=== PATIENT | female | born 1950 | race Caucasian/White ===

== ENCOUNTER → 2017-09-14 | Outpatient (CLI) | payer MEDICARE ==
[~2017-09-14] MED LIST: ADIP37.55 PO; CALC250T PO; CHOL5000 PO; DULA0.5I SQ; FURO20TA PO; LISI-515 PO; METF500T PO; PANT40TA3 PO; POTA99TA4 PO; ROPI1TAB PO; VITA500T83 PO
[2017-09-14 14:14] LABS: AUTOMATED NEUTROPHIL # 3.9 TH/MM3 (1.8-7.7); BASOPHIL # 0.1 TH/MM3 (0-0.2); BASOPHIL % 1.1 % (0.0-2.0); EOSINOPHIL # 0.2 TH/MM3 (0-0.4); EOSINOPHIL % 2.6 % (0.0-4.0); HEMATOCRIT 39.9 % (35.0-46.0); MEAN CELL VOLUME 88.2 FL (80.0-100.0); MEAN CORPUSCULAR HEMOGLOBIN 28.7 PG (27.0-34.0); MEAN CORPUSCULAR HGB CONC 32.6 % (32.0-36.0); MEAN PLATELET VOLUME 9.6 FL (7.0-11.0); MONO % 9.1 % (0.0-8.0); MONOCYTE # 0.6 TH/MM3 (0-0.9); NEUT % 58.2 % (16.0-70.0); PLATELET COUNT 274 TH/MM3 (150-450); RED BLOOD COUNT 4.52 MIL/MM3 (4.00-5.30); RED CELL DISTRIBUTION WIDTH 13.2 % (11.6-17.2); WHITE BLOOD COUNT 6.7 TH/MM3 (4.0-11.0)
[2017-09-14 14:20] LABS: BILIRUBIN, URINE NEG (NEG); BLOOD, URINE NEG (NEG); GLUCOSE,URINE NEG (NEG); HYALINE CAST, URINE 1 /lpf (RARE); KETONE, URINE NEG (NEG); NITRITE,URINE NEG (NEG); SQUAMOUS EPITHELIAL CELL URINE <1 /hpf (0-5); URINE COLOR LIGHT-YELLOW (YELLW/STRAW); URINE LEUKOCYTE ESTERASE NEG (NEG)
[2017-09-14 14:26] LABS: BICARBONATE 25.5 MEQ/L (21.0-32.0)
--- NOTE | 2017-09-15 14:35 | EKG ---
Date Performed: 09/14/2017 Time Performed: 13:21:03 PTAGE: 66 years EKG: Sinus rhythm NORMAL ECG NO PREVIOUS TRACING DOCTOR: Brock Wyatt Interpretating Date/Time 09/15/2017 14:30:21
--- NOTE | 2017-09-15 17:26 | MH ---
cc: ROSSY CAPUTO MD DATE OF ADMISSION: 09/14/2017 ADMITTING DIAGNOSIS: Cystocele, rectocele. HISTORY OF PRESENT ILLNESS The patient is a 66-year-old white female para 2-0-0-[address] Pradhan for evaluation of vaginal prolapse in July 2017. Her most recent Pap smear was normal from June 2017. Her pelvic ultrasound from 08/11/2017 shows small fibroids. She is now admitted for surgical treatment. PAST MEDICAL HISTORY/PREVIOUS SURGERY: She had appendectomy in 1970 2004 she had a Johan-en-Y gastric bypass and successfully lost 175 pounds. MEDICATIONS 1. Lisinopril 2. Lasix 3. <<1:13>> . 4. Metformin. 5. Protonix. ALLERGIES Macrodantoin OBSTETRICAL HISTORY: Two vaginal births. SOCIAL HISTORY She is retired [employer], she is for 47 years. Alcohol occasional tobacco she quit 7 years ago or drugs are none. FAMILY HISTORY: Her family history is noncontributory. PHYSICAL EXAMINATION: IN GENERAL: Physical exam is a well-nourished well-developed white female. VITAL SIGNS: The vital signs are stable. HEAD, EYES, EARS, NOSE, AND THROAT: Exam is normal. CHEST: Chest is clear. HEART: Regular rate. BREASTS: The breasts are symmetrical. ABDOMEN: The abdomen is benign. PELVIC: Exam rules a cystocele, rectocele. There is some cervical support. Uterus was normal size shape. ASSESSMENT: As above. PLAN: She is now admitted for exam under anesthesia if she has good cervical support. We will do a LASH BSO, AP repair if not we will lean we will likely do LAVH BSO, AP repair if there are extensive pelvic adhesions and she would need HEIDI-BSO, AP repair. While in the office I have outlined the distal procedures, the risks and benefits and complications of each and the patient would like to proceed. MD JANET Cabello/evelia /4:52 PM /4:58 PM BRY
== END ==
LOC: CPRE 12:56
PROVIDERS: ATTEND Obstetrics & Gynecology
DX: Z01.810 Encounter for preprocedural cardiovascular examination (principal); Z01.812 Encounter for preprocedural laboratory examination; N81.2 Incomplete uterovaginal prolapse; D25.9 Leiomyoma of uterus, unspecified; N81.10 Cystocele, unspecified; N81.6 Rectocele
CPT/HCPCS: 36415; 80051; 81001; 85025; 86850; 86900; 86901; 93005

== ENCOUNTER 2017-09-16 10:59 | Observation (INO) | payer MEDICARE ==
[~2017-09-16] VITALS: Ht 157.5 cm; Wt 69.1 kg
[2017-09-16] MEDS ORDERED: INSULIN HUMAN REGULAR 1,000 UNITS/10 ML VIAL SQ PRN (11:30)
[2017-09-16] MEDS ORDERED: METOPROLOL TARTRATE 25 MG TAB PO PRN (11:30)
[2017-09-16] MEDS ORDERED: LACTATED RINGER'S 1000 ML IV PRN (11:30)
[2017-09-16] MEDS ORDERED: SODIUM CHLORID 0.9% 500 ML IV PRN (11:30)
[2017-09-16] MEDS ORDERED: POVIDONE IODINE 5% (ANTISEPSIS KIT) 4 APPLICATIONS EACH NARE PRN (11:30)
[2017-09-16] MEDS ORDERED: ACETAMINOPHEN 1000 MG/100 ML 100 ML IV ONE (11:30)
[2017-09-16] MEDS ORDERED: CHLORHEXIDINE GLUCONATE 2 % 1 PACK (2 CLOTHS) TOPICAL PRN (11:30)
[2017-09-16] MEDS ORDERED: ROCURONIUM INJ 50 MG/5 ML SYRINGE IV PUSH ONE (12:00)
[2017-09-16] MEDS ORDERED: LACTATED RINGER'S 1000 ML INJ 3,000 ML IV ONE (12:00)
[2017-09-16] MEDS ORDERED: PROPOFOL 200 MG/20 ML AMP IV ONE (12:00)
[2017-09-16] MEDS ORDERED: DEXAMETHASONE SOD PHOS 4 MG/ML VIAL IV ONE (12:00)
[2017-09-16] MEDS ORDERED: ONDANSETRON HCL 4 MG/2 ML VIAL IV ONE (12:00)
[2017-09-16] MEDS ORDERED: NEOSTIGMINE 5 MG/5 ML SYRINGE IV PUSH ONE (12:00)
[2017-09-16] MEDS ORDERED: KETOROLAC TROMETHAMINE 30 MG/ML (IVP) VIAL IV PUSH ONE (12:00)
[2017-09-16] MEDS ORDERED: LIDOCAINE HCL 1% PF 5 ML SYRINGE OTHER ONE (12:00)
[2017-09-16] MEDS ORDERED: GLYCOPYRROLATE 1 MG/5 ML SYRINGE IV PUSH ONE (12:00)
[2017-09-16] MEDS ORDERED: MIDAZOLAM HCL 5 MG/5 ML VIAL ONE (12:29)
[2017-09-16] MEDS ORDERED: LIDOCAINE HCL 1% PF 5 ML AMPULE ONE ×2 (12:29→12:32)
[2017-09-16] MEDS ORDERED: BUPIVACAINE LIPOSOME PF 1.3% 20 ML VIAL ONE (12:30)
[2017-09-16] MEDS ORDERED: SUGAMMADEX SODIUM 200 MG/2 ML VIAL IV PUSH ONE (12:48)
[2017-09-16] MEDS ORDERED: HYDROmorphone HCL PF 2 MG/ML VIAL ONE (12:49)
[2017-09-16] MEDS: ceFAZolin 1,000 MG/NS 100 ML IV SCH ×4 (12:55→12:58)
[2017-09-16] MEDS ORDERED: ESTROGENS CONJUGATED VAG CREA 15 APPL/30 GM TUBE ONE (15:25)
[2017-09-16] MEDS: LACTATED RINGER'S 1000 ML INJ 1,000 ML IV SCH ×2 (16:30→23:40)
[2017-09-16] MEDS ORDERED: *morphine SULFATE 10 MG/ML PERIprocedure ONLY ONE (16:42)
[2017-09-16] MEDS: KETOROLAC TROMETHAMINE 30 MG/ML (IVP) VIAL IVP SCH ×2 (16:44→23:40)
[2017-09-16] MEDS ORDERED: ZOLPIDEM TARTRATE 5 MG TAB PO PRN (17:00)
[2017-09-16] MEDS ORDERED: PROMETHAZINE INJ 25 MG/ML VIAL IM PRN (17:00)
[2017-09-16] MEDS ORDERED: ONDANSETRON HCL 4 MG/2 ML VIAL IV PUSH PRN (17:00)
[2017-09-16] MEDS: DOCUSATE SODIUM 100 MG CAP PO SCH (17:00)
[2017-09-16] MEDS ORDERED: HYDROmorphone HCL PF 1 MG/ML VIAL IV PUSH PRN (17:00)
[2017-09-16] MEDS ORDERED: diphenhydrAMINE HCL 25 MG CAP PO PRN (17:00)
[2017-09-16] MEDS ORDERED: DO NOT ADM ANY ANTICOAGULANT DRUGS PRN (17:15)
[2017-09-16] MEDS ORDERED: PILL SPLITTER OTHER PRN (17:15)
[2017-09-16 17:30] VITALS: BP 111/66; PULSE 61; RESP 12; RESP 15; TEMP 97.6; O2SAT 100
[2017-09-16] MEDS ORDERED: HYDROmorphone HCL PF 2 MG/ML VIAL IV ONE (17:45)
[2017-09-16 18:10] VITALS: O2SAT 92
[2017-09-16] MEDS ORDERED: HYDROmorphone HCL PCA 6 MG/30 ML IV SCH (18:15)
[2017-09-16] MEDS ORDERED: NALOXONE HCL 0.4 MG/ML AMP IV PUSH PRN (18:15)
[2017-09-16 18:20] VITALS: O2SAT 97
[2017-09-16] MEDS ORDERED: KETOROLAC TROMETHAMINE 60 MG/2 ML (IM) VIAL IM ONE (19:30)
[2017-09-16] MEDS: ACETAMINOPHEN 1000 MG/100 ML VIAL IV SCH (19:57)
[2017-09-16 20:00] VITALS: BP 114/69; PULSE 72; RESP 16; TEMP 97.9; O2SAT 99
[2017-09-16 21:10] VITALS: O2SAT 98
[2017-09-16 21:24] LABS: HEMATOCRIT 36.3 % (35.0-46.0); HEMOGLOBIN 11.8 GM/DL (11.6-15.3)
[2017-09-16] MEDS ORDERED: PCA - TOTAL MG DILAUDID DELIVERED PER SHIFT OTHER SCH (22:00)
[2017-09-17 04:00] VITALS: BP 97/65; PULSE 62; RESP 14; TEMP 97.7; O2SAT 98
[2017-09-17] MEDS: ACETAMINOPHEN 1000 MG/100 ML VIAL IV SCH ×2 (04:06→11:58)
[2017-09-17 04:13] LABS: AUTOMATED NEUTROPHIL # 7.4 TH/MM3 (1.8-7.7); BASOPHIL % 0.4 % (0.0-2.0); EOSINOPHIL % 0.2 % (0.0-4.0); HEMATOCRIT 35.7 % (35.0-46.0); HEMOGLOBIN 11.8 GM/DL (11.6-15.3); LYMPH % 13.1 % (9.0-44.0); LYMPHOCYTE # 1.2 TH/MM3 (1.0-4.8); MEAN CELL VOLUME 87.5 FL (80.0-100.0); MEAN CORPUSCULAR HEMOGLOBIN 28.9 PG (27.0-34.0); MEAN PLATELET VOLUME 8.9 FL (7.0-11.0); MONO % 7.8 % (0.0-8.0); MONOCYTE # 0.7 TH/MM3 (0-0.9); NEUT % 78.5 % (16.0-70.0); PLATELET COUNT 211 TH/MM3 (150-450); RED BLOOD COUNT 4.08 MIL/MM3 (4.00-5.30); WHITE BLOOD COUNT 9.4 TH/MM3 (4.0-11.0)
[2017-09-17 04:37] LABS: BICARBONATE 24.6 MEQ/L (21.0-32.0); CALCIUM 8.4 MG/DL (8.5-10.1); CREATININE 1.4 MG/DL (0.50-1.00)
[2017-09-17] MEDS: KETOROLAC TROMETHAMINE 30 MG/ML (IVP) VIAL IVP SCH ×2 (05:35→11:11)
[2017-09-17] MEDS: DOCUSATE SODIUM 100 MG CAP PO SCH (05:35)
[2017-09-17 06:20] VITALS: O2SAT 96
[2017-09-17 08:00] VITALS: BP 107/64; PULSE 72; RESP 14; TEMP 97.8; O2SAT 97
[2017-09-17] MEDS ORDERED: metFORMIN HCL 500 MG TAB PO SCH (08:00)
[2017-09-17] MEDS ORDERED: FUROSEMIDE 20 MG TAB PO SCH (09:00)
[2017-09-17] MEDS ORDERED: LISINOPRIL 20 MG TAB PO SCH (09:00)
[2017-09-17] MEDS ORDERED: PANTOPRAZOLE SOD 40 MG DELAYED RELEASE TAB PO SCH (09:00)
--- NOTE | 2017-09-17 10:50 | MP ---
cc: ROSSY CAPUTO MD DATE OF SURGERY: 09/16/2017. PREOPERATIVE DIAGNOSIS Cystocele, rectocele, uterine prolapse. POSTOPERATIVE DIAGNOSIS Cystocele, rectocele, uterine prolapse. PROCEDURE LAVH and BSO, anterior-posterior repair. ANESTHESIA General ET. SURGEON Rossy Caputo MD MICA SPREADER Kamille Thomas. ESTIMATED BLOOD LOSS About 100 ccs. FLUIDS 1.8 liter crystalloid. OBJECTIVE FINDINGS Following induction of adequate general endotracheal anesthesia the patient was prepped and draped supine on the operating table in the dorsal lithotomy position in the usual sterile fashion with the bladder being drained via Penny catheterization. Examination revealed cervical descent down to the introitus, so decision was made to proceed with LAVH BSO, AP repair. Initially infraumbilical incision was made with a knife, but because of a very elastic peritoneum entry could not be produced. This was tried supraumbilical without success, so we elected to do a curving supraumbilical incision using a knife to cut down through skin to the fascia. Fascia was opened transversely and the peritoneum opened with fingertip. The GelPort was placed, laparoscope was inserted. A 5 port was placed in the left lower quadrant and then the right lower quadrant. The abdominal evaluation was normal. Uterus had some small fibroids, some posterior. Tubes and ovaries were normal, cul-de-sacs were clear. Harmonic scalpel was used to take the left ovarian vessels, left round ligament, left broad ligament, left-sided bladder flap and left uterine vessels and same on the right. It was felt to facilitate removal, to go ahead and do a supracervical hysterectomy and the pouch was used to extract the fundus, tubes and ovaries through the GelPort site. Attention was now directed to the vagina. Handheld retractors were used to expose the cervix which was held with a thyroid clamp. The mucosa around the cervix was scored with a Bovie and the bladder was pushed off anteriorly, elevated with a retractor, posterior cul-de-sac was entered sharply and Lyndsey clamp was used to take the left uterosacral, clamping, cutting, ligating with Vicryl, same on the right and the right and left cardinal in the same fashion. This allowed delivery of the cervix to the vaginal vault. The posterior vaginal wall was then run to the posterior peritoneum with a running locking stitch of 0-Vicryl and the peritoneum was closed with pursestring suture of 0 Vicryl. Using the Allis clamps for traction we now undermined the vaginal mucosa over the cystocele and urethrocele and mobilized the vaginal mucosa off of the perivesical and perirectal fascia. Well mobilized, the UV junction was plicated with 2-0 Vicryl stitch in Aliyah fashion. Additional sutures were placed to elevate ureterocele, cystocele and a second layer at the UV junction. Excess anterior vaginal mucosa was trimmed and the anterior vaginal wall closed with interrupted sutures of 2-0 Vicryl in [id number] fashion. The vaginal cuff was now closed front to back with 0-Vicryl interrupted, incorporate each uterosacral to the corner. Posterior repair was now performed by excising a vanessa shaped wedge of scar tissue from the perineum and introitus. The vaginal mucosa was now undermined over the rectocele with Allis clamps for traction and Metzenbaum scissors for dissection. Then the vaginal mucosa from underlying perirectal fascia and closed the perirectal fascia over the rectocele defect using a running stitch of 2-0 Vicryl. Excess posterior vaginal mucosa was trimmed and the posterior vaginal wall closed with running locking stitch of 2-0 Vicryl. The perineum was reapproximated with 0-Vicryl interrupted and a running stitch of 2-0 Vicryl. Inspection revealed good support, good hemostasis. Vagina was packed with 2 inch gauze moistened with Premarin cream. Exam is normal. Bundle Shaker's gloves were changed. The laparoscope was reinserted. There was no bleeding. Ureters showed good peristalsis. The GelPort was now removed and the peritoneum sutured with running stitch of 2-0 Vicryl, the fascia with a running locking stitch of 0-Vicryl corner to midline and tied and the subcu with a running 3-0 Vicryl, the skin with a running subcuticular 3-0 Monocryl. The GelPort site was now inspected through the lower ports with good closure and no entrapment of tissue. No bleeding was seen in the pelvis. Scope was removed, gas allowed to escape. The small ports were removed. A small port site sutured with 3-0 Monocryl interrupted. Dermabond was applied. All counts were correct and the patient was awakened and taken to the recovery room in good condition. MD JANET Cabello/MUKUND /3:46 PM /10:07 AM BRY
[2017-09-17 12:41] VITALS: BP 102/58; PULSE 78; RESP 12; TEMP 98.4; O2SAT 98
== END 2017-09-17 15:28 | disposition home or self-care (01) ==
LOC: HSDC 10:59 → EDUNIT# 12:45 → HSDI 15:36 → H1EA 17:29
PROVIDERS: ADMIT Obstetrics & Gynecology; ATTEND Obstetrics & Gynecology
DX: D25.9 Leiomyoma of uterus, unspecified (principal); N81.4 Uterovaginal prolapse, unspecified; I10 Essential (primary) hypertension; E11.9 Type 2 diabetes mellitus without complications; Z79.84 Long term (current) use of oral hypoglycemic drugs
CPT/HCPCS: 00840; 57260; 58552; 64488; 80048; 84132; 85014; 85018; 85025; 88307; 94150; 96374; 96375; 96376; C9290; G0378; J0131; J0690; J1100; J1170; J1885; J2250; J2270; J2405; J2710; J7120